=== PATIENT | female | born 1975 | race Caucasian/White ===

== ENCOUNTER → 2022-05-08 13:48 | Outpatient (CLI) | payer BC, SELFPAY ==
--- NOTE | 2022-05-08 13:56 | US_ITS ---
FINAL REPORT CLINICAL HISTORY: THYROID NODULE FINDINGS: Sonographic images of the thyroid were obtained. The thyroid gland is atrophic bilaterally. There are cystic lesions bilaterally. There are 2 small ones on the right measuring up to 3 mm and a larger complex cystic lesion on the left measuring up to 8 mm. No dominant solid mass is identified. IMPRESSION: Atrophic thyroid gland with benign cysts. Findings consistent with TI-RADS category 1. No additional follow-up is recommended. Reviewed, Interpreted and Dictated by Prema Cortez MD Transcribed by Hellen Toth Authenticated and [facility]
== END ==
PROVIDERS: PCP Physician Assistant; Visit Provider Physician Assistant
DX: E04.1 Nontoxic single thyroid nodule (principal)
CPT/HCPCS: 76536

== ENCOUNTER → 2022-05-17 16:42 | Outpatient (CLI) | payer BC, SELFPAY | PROVIDERS: PCP Physician Assistant; Visit Provider Physician Assistant | DX: G47.33 Obstructive sleep apnea (adult) (pediatric) (principal); R53.83 Other fatigue; R06.83 Snoring; G47.00 Insomnia, unspecified | CPT/HCPCS: G0399 ==

== ENCOUNTER → 2022-06-13 09:45 | Outpatient (CLI) | payer BC, SELFPAY ==
[2022-06-13 13:10] LABS: Ferritin 52.4 ng/ml (6.24-137)
== END ==
PROVIDERS: PCP Physician Assistant; Visit Provider Nurse Practitioner Family
DX: E83.10 Disorder of iron metabolism, unspecified (principal)
CPT/HCPCS: 36415; 82728

== ENCOUNTER → 2022-11-11 11:04 | Outpatient (CLI) | payer BC, SELFPAY ==
--- NOTE | 2022-11-11 11:13 | XR_ITS ---
FINAL REPORT CLINICAL HISTORY: CHEST PAIN FINDINGS: TWO VIEW CHEST The heart size is normal. The mediastinum is normal. The lungs are clear. There is no pneumothorax. IMPRESSION: No acute cardiopulmonary process. Reviewed, Interpreted and Dictated by Gustavo Crook III, MD Transcribed by Lila Lott Authenticated and [facility]
--- NOTE | 2022-11-11 11:49 | ECG_ITS ---
APPROVED REPORT Exam: Resting ECG HR:74 bpm ECG Measurements Heart Rate 74 AXES MD 145 P 7 QRSd 93 QRS 31 QT 375 T 2 QTc 402 Conclusion SINUS RHYTHM NORMAL ECG UNCONFIRMED REPORT Electronically signed by : Dean Hamlin MD 11/11/2022 19:49:01
== END ==
PROVIDERS: PCP Family Medicine; Visit Provider Nurse Practitioner Family
DX: R07.9 Chest pain, unspecified (principal)
CPT/HCPCS: 71046; 93005; 93270

== ENCOUNTER → 2022-12-19 11:19 | Outpatient (CLI) | payer BC, SELFPAY ==
--- NOTE | 2022-12-19 | CA_ITS ---
APPROVED REPORT Exam: Pharmacologic Technologist: Ne Adkins, Ht: 5 ft 4 in Wt: 283 lbs BSA: 2.27 m2 HR: 81 bpm BP: 121/82 mmHg Rhythm: NSR, RIGHTWARD AXIS, NS ST-T ABNS Indications: SOA Medical History Medical History: HTN, Hyperlipidemia Medications: Omeprazole,,,,, Levothyroxine,,,,, HCTZ,,,,, Flonase,,,,, Vit D3,,,,, LoraTidine,,,,, Vilazodone,,,,, Allergies: No known drug allergies Cardiac Risk Factors: HTN, Hyperlipidemia, Smoking Stress Test Details Test: LEXISCAN HR Resting HR: 85 bpm Max Heart Rate (APMHR): 172 bpm Max HR Achieved: 115 bpm Target HR (85% APMHR): 146 bpm % of APMHR: 67 Recovery HR: 97 bpm BP Resting BP: 121/82 mmHg Max BP: 148/86 mmHg Recovery BP: 136.0/83.0 mmHg ECG Resting ECG: NSR, RIGHTWARD AXIS, T-WAVE ABNORMALITIES IN INFEROLATERAL LEADS Stress ECG: NO CHANGE Arrhythmia: OCCASIONAL PVCS Clinical Exercise duration: 04:02 min Highest Stage Achieved: Exercise capacity: 1.0 METs Stress ECG Conclusion PT HAD MILD CHEST PRESSURE, MILD SOA AND HEAD DISCOMFORT OCCASIONAL PVCS NO SIGNIFICANT ST CHANGES NON-DIAGNOSTIC LEXISCAN STRESS DUE TO BASELINE ABNORMALITIES MYOVIEW IMAGES REPORTED SEPARATELY Test Summary REST 05:17 . . 85 . 121/ 82 . . Stage 1 01:00 . . 113 . . . . Stage 2 01:00 . . 112 . 148/ 86 . . Stage 3 01:00 . . 110 . 145/ 81 . . Stage 4 01:00 . . 102 . 137/ 80 . . Stage 4 01:02 . . 102 . 137/ 80 . Stop exercise at 04:02 RECOVERY 01:00 . . 98 . . . . RECOVERY 02:00 . . 97 . 134/ 80 . . RECOVERY 03:00 . . 96 . 136/ 83 . . RECOVERY 03:18 . . 95 . 136/ 83 . . Electronically signed by : Nicole Mcqueen, 12/26/2022 23:26:18
--- NOTE | 2022-12-19 11:19 | NM_ITS ---
APPROVED REPORT Exam: Nuclear Stress Test Indication: DYSRHYTHMIA, OBESITY, C.P., SOB, FATIGUE Patient Location: Outpatient Stress Tech: Ne Adkins CT Tech:Maki LeonardoHANNY RT(R)(N) Ht: 5 ft 4 in Wt: 283 lbs Bra Size: D HR: 85 bpm BP: 121/82 mmHg BSA: 2.27 m2 Rhythm: NSR TID: 1.37 BMI: 48.5 History: DYSRHYTHMIA, OBESITY, C.P., SOB, FATIGUE Procedure: Patient received 0.4 mg of intravenous Lexiscan, resting heart rate 115 bpm, resting blood pressure 121/82 mmHg, with Lexiscan maximum heart rate achieved was 115 bpm which is % of the maximum predicted heart rate and blood pressure was 148/86 mmHg. With Lexiscan, patient denied any complaint of chest pain. Cardiac Stress and Resting SPECT Images: Cardiac Stress and Resting SPECT images were obtained using technetium 99m Myoview 31.6 mCi stress and 10.15 mCi at rest. Resting and stress imaging in both supine and prone positions demonstrate no evidence of fixed or reversible perfusion defects. There is increased transient ischemic dilatation ratio (TID 1.37), suggestive of possible multivessel disease or balanced ischemia. Gated imaging demonstrates normal global and regional LV systolic function. LVEF is calculated at 59%. Conclusion: No evidence of fixed or reversible perfusion defects. Increased transient ischemic dilatation ratio (TID 1.37), suggestive of possible multivessel disease or balanced ischemia. Gated imaging demonstrates normal global and regional LV systolic function. LVEF is calculated at 59%. Electronically signed by : Nicole Mcqueen, 12/26/2022 23:28:20
== END ==
PROVIDERS: PCP Family Medicine; Visit Provider Nurse Practitioner
DX: R06.02 Shortness of breath (principal); R07.89 Other chest pain; R00.2 Palpitations; G47.33 Obstructive sleep apnea (adult) (pediatric)
CPT/HCPCS: 78452; 93017; A9502; J2785

== ENCOUNTER → 2022-12-23 10:29 | Outpatient (CLI) | payer BC, SELFPAY ==
--- NOTE | 2022-12-23 11:02 | XR_ITS ---
FINAL REPORT CLINICAL HISTORY: BACK PAIN FINDINGS: RIGHT HIP Two views of the right hip and AP view of the pelvis demonstrate no acute fracture or dislocation. There are mild degenerative changes. An IUD is noted in the mid pelvis. The visualized bony structures are well aligned. No soft tissue abnormality is seen. IMPRESSION: No acute bony abnormality. Reviewed, Interpreted and Dictated by Gustavo Crook III, MD Transcribed by Gini Blandon Authenticated and [facility]
--- NOTE | 2022-12-23 11:02 | XR_ITS ---
FINAL REPORT CLINICAL HISTORY: BACK PAIN FINDINGS: 5 views of the lumbar spine were obtained. There is no evidence of fracture or dislocation. The vertebral alignment is normal. Disc spaces are preserved. No paraspinous soft tissue abnormalities identified. An IUD is noted in the mid pelvis. IMPRESSION: No acute bony abnormality. Reviewed, Interpreted and Dictated by Gustavo Crook III, MD Transcribed by Gini Blandon Authenticated and [facility]
== END ==
PROVIDERS: PCP Nurse Practitioner Family; Visit Provider Nurse Practitioner Family
DX: M54.50 Low back pain, unspecified (principal); M25.551 Pain in right hip
CPT/HCPCS: 72110; 73502

== ENCOUNTER → 2022-12-30 07:57 | Outpatient (CLI) | payer BC, SELFPAY ==
--- NOTE | 2022-12-30 08:02 | CA_ITS ---
APPROVED REPORT EXAM: Comprehensive 2D, Doppler, and color-flow Echocardiogram Recovery Coordinator: Lilibeth Ross CRT Ht: 5 ft 4 in Wt: 283lbs BSA: 2.27 BP: 134/84 mmHg Indications: Chest Pain, Shortness of Breath, SHARAD, Obesity, GERD 2D Dimensions Aortic Root 1.91 cm LA Volume 46.10 mL LA Volume Index 19.90 mL/m2 (M/F) 16-34 M-Mode Dimensions RVDd 2.56 cm (0.9-2.6) LA Diam 3.33 cm (1.9-4.0) LVDd 3.78 cm (3.5-5.7) Ao Diam 3.37 cm (2.0-3.7) LVDs 2.40 cm (3.5-5.7) IVSd 1.34 cm (0.6-1.1) PWd 0.81 cm (0.6-1.1) EF (Teich) 67.00% FS 36.50% EDV (Teich) 61.20 mL TAPSE 1.94 (<1.7) ESV (Teich) 20.20 mL LV Diastology E Decel Time 223.00 (160-240 msec) E/A Ratio 1.16 MED E' 4.10 (< 7 cm/sec) MED A' 5.10 cm/s E'/MED E' Ratio 17.05 (>14) LAT E' 8.90 (<10 cm/sec) LAT A' 10.50 cm/s E/LAT E' Ratio 7.85 (>14) Aortic Valve AI PHT 396.00 ms AO Peak GR. 4.00 mmHg Mitral Valve MV A Velocity 60.00 (40-130 cm/s) E/A Ratio 1.16 MV Decel. Time 223.00 (160-240 ms) Pulmonary Valve PV Peak Velocity 129.00 (50-150 cm/s) Tricuspid Valve TR P. Velocity 209.00 cm/s RAP Estimate 10.00 mmHg RVSP 27.40 mmHg Left Ventricle The left ventricle is normal size. The left ventricular systolic function is normal. The left ventricular ejection fraction is within the normal range. There is normal left ventricular wall thickness. There is normal LV segmental wall motion. The left ventricular diastolic function is normal. LVEF is 55%. Right Ventricle The right ventricle is mildly dilated. The right ventricular systolic function is normal. Atria The left atrium size is normal. The right atrium size is normal. There is no Doppler evidence of interatrial shunt. Aortic Valve The aortic valve opens well. There is no aortic valvular stenosis. Trace aortic regurgitation. Mitral Valve The mitral valve is normal in structure. No evidence of mitral valve stenosis. Trace mitral regurgitation. Tricuspid Valve The tricuspid valve leaflets are thin and pliable. Trace tricuspid regurgitation. RVSP is normal. Pulmonic Valve The pulmonary valve is normal in structure. Trace pulmonic regurgitation. Great Vessels The aortic root is normal in size. The ascending aorta is normal in size. IVC is normal in size and collapses >50% with inspiration. Pericardium There is no pericardial effusion. Other Information Study Quality: Fair Conclusion Normal biventricular systolic function. Mild RV dilation. No significant valvular stenosis or regurgitation. Electronically signed by : Nicole Mcqueen, 01/01/2023 14:42:42
== END ==
PROVIDERS: PCP Nurse Practitioner Family; Visit Provider Nurse Practitioner
DX: R00.2 Palpitations (principal); R07.89 Other chest pain; G47.33 Obstructive sleep apnea (adult) (pediatric)
CPT/HCPCS: 93306

== ENCOUNTER 2023-01-09 08:26 | Day surgery (SDC) | payer BC, SELFPAY ==
[2023-01-09] VITALS (18 sets, daily range): BP systolic 98–195; BP diastolic 53–108; PULSE 64–89; RESP 16–20; O2SAT 94–97; BMI 48.0
--- NOTE | 2023-01-09 07:06 | IR_ITS ---
APPROVED REPORT Patient Location: Outpatient PROCEDURES Left heart catheterization Left ventriculogram Selective coronary angiogram INDICATION High risk abnormal Myoview, Angina pectoris, Factors for coronary artery disease, Informed consent was obtained prior to the procedure. COMPLICATIONS None Estimated Blood Loss: Less than 10 mls TECHNIQUE One percent lidocaine used to anesthetize the right anterior aspect of the wrist. The right radial artery was accessed via the Seldinger technique. A 6 Cam[place]onian sheath was placed in the right radial artery. 2.5 mg of Verapamil, 800 mcg of nitroglycerin, 1mg Lidocaine and 5000 U Heparin were given through the arterial sheath. The papa catheter was also used to perform left heart catheterization, left ventriculogram and selective coronary angiogram. At the end of the procedure the sheath was removed good hemostasis was achieved using Traclet band, patient was transferred to the postop holding area in stable condition. ANGIOGRAPHIC RESULTS The left main artery Normal The left anterior descending artery Normal The circumflex artery Large dominant normal The right coronary artery Nondominant normal The LUO ventriculogram reveals Normal 65% The left ventricular end-diastolic pressure 10 mmHg IMPRESSION Normal coronary arteries Normal ejection fraction Normal left ventricular end-diastolic pressure PLAN 1. Medical management 2. Recommend risk factor modification Electronically signed by : Juancho Taylor MD 01/09/2023 12:11:02
[2023-01-09 09:00] LABS: Basophils # 0.1 K/mm3 (0-0.2); Basophils % 0.6 % (0.1-2.0); Eosinophils # 0.1 K/mm3 (0.0-0.4); Eosinophils % 1.3 % (0.1-12.0); Hematocrit 44.6 % (37.0-47.0); Hemoglobin 15.2 g/dL (12.2-16.2); Lymphocytes # 2.8 K/mm3 (0.7-4.5); Lymphocytes % 30.1 % (10-50); Mean Corpuscular HGB Conc 34.2 g/dL (31.8-35.4); Mean Corpuscular Hemoglobin 33.3 pg (27.0-31.2); Mean Corpuscular Volume 97.6 fl (81-99); Mean Platelet Volume 8.9 fl (7.4-10.4); Monocytes # 0.4 K/mm3 (0.1-1.0); Monocytes % 4.8 % (1.7-9.3); Neutrophils # 5.9 K/mm3 (1.8-7.8); Neutrophils % 63.2 % (37.0-80.0); Platelet Count 279 K/mm3 (142-424); Red Blood Count 4.56 M/mm3 (4.20-5.40); Red Cell Distribution Width 13.7 % (11.5-17.5); White Blood Count 9.3 K/mm3 (4.8-10.8)
[2023-01-09 09:02] LABS: Chloride 105 mmol/L (98-107)
[2023-01-09 09:03] LABS: Potassium 5.2 mmoL/L (3.5-5.1); Sodium 139 mmol/L (136-145)
[2023-01-09 09:06] LABS: Anion Gap 14.2 mEq/L (5-15); Blood Urea Nitrogen 15 mg/dl (7-17); Calcium 8.5 mg/dl (8.4-10.2); Carbon Dioxide 25 mmol/L (22.0-30.0); Creatinine Clearance Estimated 74 mL/min (50-200); Estimated Glomerular Filt Rate 77 ml/min (>60); GFR (African American) 93 ML/MIN (>60); Glucose 104 mg/dl (74-100)
[2023-01-09 09:28] LABS: HCG Qualitative, Serum Negative (Negative)
[2023-01-09 14:09] LABS: CATHL Activated Clotting Time 205 SEC (74-125)
--- NOTE | 2023-01-09 15:43 | SUR.PHASEII ---
Discharge Instructions given to patient and mother/friend,verbal and handout, both stated understanding.
== END 2023-01-09 16:04 | disposition home or self-care (01) ==
PROVIDERS: PCP Nurse Practitioner Family; Visit Provider Internal Medicine
DX: I20.8 Other forms of angina pectoris (principal); R07.9 Chest pain, unspecified; G47.33 Obstructive sleep apnea (adult) (pediatric); K21.9 Gastro-esophageal reflux disease without esophagitis; R00.2 Palpitations; R07.89 Other chest pain; Z79.899 Other long term (current) drug therapy
CPT/HCPCS: 80048; 84703; 85025; 85347; 93458; 99152; C1725; C1760; C1769; J1644; J2405; Q9967

== ENCOUNTER 2023-03-03 16:00 | Outpatient (RCR) | payer BC, SELFPAY | END 2023-03-10 11:45 | disposition home or self-care (01) | LOC: PT 16:00 | PROVIDERS: PCP Nurse Practitioner Family; Visit Provider Nurse Practitioner Family | DX: S39.012A Strain of muscle, fascia and tendon of lower back, initial encounter (principal) | CPT/HCPCS: 97010; 97012; 97014; 97110; 97140; 97163; 97164; G0283 ==

== ENCOUNTER 2023-10-20 12:03 | Outpatient (CLI) | payer BC, SELFPAY ==
[2023-10-22 21:39] LABS: 5-HIAA, Urine, 24Hr. 4.6 mg/24 hr (0.0-14.9)
== END 2023-10-20 23:59 | disposition home or self-care (01) ==
LOC: LAB.DROPOF 12:04
PROVIDERS: PCP Nurse Practitioner Family; Visit Provider Internal Medicine Endocrinology, Diabetes & Metabolism
DX: R61 Generalized hyperhidrosis (principal)
CPT/HCPCS: 83497

== ENCOUNTER 2023-10-21 07:59 | Outpatient (CLI) | payer BC, SELFPAY ==
[2023-10-29 14:21] LABS: Miscellaneous Test SCANNED IMAGE
== END 2023-10-21 23:59 | disposition home or self-care (01) ==
LOC: LAB 08:00
PROVIDERS: PCP Nurse Practitioner Family; Visit Provider Internal Medicine Endocrinology, Diabetes & Metabolism
DX: R63.5 Abnormal weight gain (principal)
CPT/HCPCS: 36415; 82533